=== PATIENT | female | born 2000 | race American Indian/Alaskan Native ===

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

== ENCOUNTER 2022-03-09 05:33 | Emergency (ER) | payer MEDICAID ==
[2022-03-09 05:55] VITALS: BP 128/99; PULSE 86
[2022-03-09] MEDS ORDERED: Ondansetron 4 MG Tab.DIS PO ONE (05:56)
[2022-03-09] MEDS ORDERED: Sodium Chloride 0.9% 1,000 ML IV ONE (06:53)
[2022-03-09 08:01] LABS: AMPHETAMINES,URINE NEGATIVE (NEGATIVE); BARBITURATES,URINE NEGATIVE (NEGATIVE); BENZODIAZEPINE,URINE NEGATIVE (NEGATIVE); MDMA (ECSTASY), URINE NEGATIVE (NEGATIVE); METHADONE,URINE NEGATIVE (NEGATIVE); METHAMPHETAMINES,URINE NEGATIVE (NEGATIVE); OPIATES,URINE NEGATIVE (NEGATIVE); OXYCODONE,URINE NEGATIVE (NEGATIVE); PHENCYCLIDINE,URINE NEGATIVE (NEGATIVE); TCA,URINE NEGATIVE (NEGATIVE)
[2022-03-09 08:09] LABS: ANION GAP 19.1 mEq/L (7-13); CHLORIDE,CL 104 mmol/L (98-107); SODIUM,NA 137 mmol/L (136-145)
[2022-03-09 08:19] LABS: ESTIMATED GFR 135 mL/min (>=60)
[2022-03-09] MEDS ORDERED: Ondansetron 4 MG/2 ML SDV IVPUSH ONE (08:26)
== END 2022-03-09 08:45 | disposition home or self-care (01) ==
LOC: DL.ED 05:33
DX: O21.9 Vomiting of pregnancy, unspecified (principal); O99.322 Drug use complicating pregnancy, second trimester; F12.10 Cannabis abuse, uncomplicated; O99.282 Endocrine, nutritional and metabolic diseases complicating pregnancy, second trimester; E87.6 Hypokalemia; Z20.822 Contact with and (suspected) exposure to COVID-19; Z3A.15 15 weeks gestation of pregnancy
CPT/HCPCS: 36415; 80053; 80305; 81003; 82150; 83605; 83690; 84145; 85025; 86140; 87635; 96361; 96374; 99284; A9270; J2405; J7030; U0002

== ENCOUNTER 2022-08-13 06:15 | Inpatient (IN) | payer MEDICAID ==
[2022-08-13] MEDS ORDERED: Carboprost Tromethamine 250 MCG/1 ML Amp IM PRN (07:02)
[2022-08-13] MEDS ORDERED: Lidocaine 1% 30 ML SDV INJECT PRN (07:02)
[2022-08-13] MEDS ORDERED: fentaNYL 100 MCG/2 ML SDV IVPUSH PRN (07:02)
[2022-08-13] MEDS ORDERED: Sodium Chloride 0.9% 10 ML Syringe FLUSH PRN (07:02)
[2022-08-13] MEDS ORDERED: Tranexamic Acid 1,000 MG in Sodium Chloride 0.9% 100 ML IV PRN (07:02)
[2022-08-13] MEDS ORDERED: Lactated Ringers 1,000 ML IV ONE (07:02)
[2022-08-13] MEDS ORDERED: Ondansetron 4 MG/2 ML SDV IVPUSH PRN (07:02)
[2022-08-13] MEDS ORDERED: Methylergonovine 0.2 MG/1 ML Amp IM PRN (07:02)
[2022-08-13] MEDS ORDERED: Acetaminophen 325 MG Tab PO PRN (07:02)
[2022-08-13] MEDS ORDERED: Misoprostol 400 MCG (4 X 100 MCG TAB) RECTAL PRN (07:02)
[2022-08-13] MEDS ORDERED: Ondansetron 4 MG/2 ML SDV ONE (07:10)
[2022-08-13] MEDS ORDERED: Oxytocin/Normal Saline 30 UNIT/500 ML BAG IV SCH (07:15)
[2022-08-13] MEDS ORDERED: fentaNYL 100 MCG/2 ML SDV ONE ×2 (07:42→14:45)
[2022-08-13] MEDS ORDERED: Phenylephrine HCl In 0.9% NaCl 1 MG/10 ML Syringe ONE (07:43)
[2022-08-13] MEDS ORDERED: Bupivacaine 0.25% 10 ML SDV ONE ×2 (07:43→14:45)
[2022-08-13] MEDS ORDERED: Bupivacaine 0.25% 10 ML SDV INJECT ONE ×2 (07:43→15:59)
[2022-08-13] MEDS ORDERED: fentaNYL 100 MCG/2 ML SDV ITHECAL ONE (07:43)
[2022-08-13] MEDS ORDERED: ePHEDrine 50 MG/ML SDV ONE (07:43)
[2022-08-13] MEDS: Lactated Ringers 1,000 ML IV SCH ×2 (07:57→14:46)
[2022-08-13] MEDS: Ropivacaine 200 MG in Premix Bag 1 BAG EPIDUR SCH ×2 (08:05→14:53)
[2022-08-13] MEDS ORDERED: ePHEDrine 50 MG/ML SDV IVPUSH PRN (08:38)
[2022-08-13] MEDS ORDERED: Phenylephrine HCl In 0.9% NaCl 1 MG/10 ML Syringe IVPUSH PRN (08:38)
[2022-08-13] MEDS ORDERED: fentaNYL 100 MCG/2 ML SDV IV ONE (15:59)
[2022-08-13] MEDS ORDERED: Simethicone 80 MG Tab.Chew PO PRN (18:45)
[2022-08-13] MEDS ORDERED: Benzocaine/Menthol 20%-0.5% Spray 78 GM Cannister TOP PRN (18:45)
[2022-08-13] MEDS ORDERED: Oxytocin 10 Units/1 ML SDV IM PRN (18:45)
[2022-08-13] MEDS: Ibuprofen 800 MG Tab PO PRN (23:27)
[2022-08-13] MEDS: Docusate Sodium 100 MG Cap PO PRN (23:28)
[2022-08-14] MEDS: Prenatal Multivitamin with Calcium/Folic Acid/Iron Tab PO SCH (08:36)
[2022-08-14] MEDS: Docusate Sodium 100 MG Cap PO PRN (08:37)
[2022-08-14] MEDS: Ibuprofen 800 MG Tab PO PRN ×2 (08:40→18:00)
[2022-08-14] MEDS: Acetaminophen 325 MG Tab PO PRN ×2 (10:28→16:19)
[2022-08-14] MEDS ORDERED: Witch Hazel Medicated Pads 100/Jar TOP PRN (15:50)
[2022-08-15] MEDS: Acetaminophen 325 MG Tab PO PRN ×2 (04:35→12:31)
[2022-08-15] MEDS: Ibuprofen 800 MG Tab PO PRN (08:29)
[2022-08-15] MEDS: Prenatal Multivitamin with Calcium/Folic Acid/Iron Tab PO SCH (08:29)
[2022-08-15] MEDS: Docusate Sodium 100 MG Cap PO PRN (08:29)
[2022-08-15 10:11] VITALS: BP 118/64; PULSE 66
== END 2022-08-15 16:00 | disposition home or self-care (01) | DRG 807 ==
LOC: DL.OB 06:15 → UNDOADMOB 06:34 → DL.OB 06:34 → OBSVTOIN 16:37 → DL.OB 16:37
PROVIDERS: ADMIT Family Medicine; ATTEND Family Medicine
PROC: 10E0XZZ Delivery of Products of Conception, External Approach (ICD-10-PCS; principal; 2022-08-13)
DX: O99.02 Anemia complicating childbirth (principal); Z37.0 Single live birth; D64.9 Anemia, unspecified; O99.334 Smoking (tobacco) complicating childbirth; F17.210 Nicotine dependence, cigarettes, uncomplicated; Z88.0 Allergy status to penicillin; Z90.49 Acquired absence of other specified parts of digestive tract; Z3A.37 37 weeks gestation of pregnancy
CPT/HCPCS: 01967; 36415; 51702; 59409; 85027; A9270-GY; J2405; J2590; J2795; J3010; J3490; J7120

== ENCOUNTER 2023-11-03 08:42 | Inpatient (IN) | payer MEDICAID ==
[2023-11-03] MEDS ORDERED: Naloxone 2 MG/2 ML Syringe IVPUSH PRN (09:12)
[2023-11-03] MEDS: Lactated Ringers 1,000 ML IV ONE (09:13)
[2023-11-03] MEDS: fentaNYL 100 MCG/2 ML SDV IVPUSH ONE (10:00)
[2023-11-03 10:29] LABS: APPEARANCE,URINE SLIGHTLY CLOUDY (CLEAR); BILIRUBIN,URINE NEGATIVE (NEGATIVE); COLOR,URINE YELLOW (YELLOW); GLUCOSE,URINE NEGATIVE (NEGATIVE); KETONES,URINE NEGATIVE (NEGATIVE); LEUKOCYTE ESTERASE,URINE TRACE (NEGATIVE); NITRITE,URINE NEGATIVE (NEGATIVE); OCCULT BLOOD,URINE MODERATE (NEGATIVE); PH,URINE 7.5 (5.0-9.0); PROTEIN,URINE 100 (NEGATIVE); UROBILINOGEN,URINE 0.2 mg/dL (0.2-1.0)
[2023-11-03] MEDS: metroNIDAZOLE 250 MG Tab PO ONE (10:37)
[2023-11-03] MEDS: Fluconazole 100 MG Tab PO ONE (10:37)
[2023-11-03] MEDS: Ondansetron 4 MG/2 ML SDV IVPUSH ONE (10:38)
[2023-11-03] MEDS: Acetaminophen 500 MG Tab PO ONE (10:38)
[2023-11-03 10:51] LABS: BACTERIA,URINE MODERATE /HPF (0-FEW/HPF); HYALINE CASTS,URINE FEW
[2023-11-03 10:52] LABS: EPITHELIAL CELLS,URINE MANY /HPF (NOT SEEN); MUCUS,URINE MODERATE /LPF (NOT SEEN)
[2023-11-03] MEDS: Lactated Ringers 1,000 ML IV SCH (11:10)
[2023-11-03] MEDS ORDERED: fentaNYL 100 MCG/2 ML SDV ONE (11:24)
[2023-11-03] MEDS ORDERED: Bupivacaine 0.25% 10 ML SDV ONE (11:24)
[2023-11-03] MEDS: Clindamycin in 0.9 % Sod Chlor 900 MG in Premix Bag 1 BAG IV ONE (11:45)
[2023-11-03] MEDS ORDERED: Phenylephrine HCl In 0.9% NaCl 1 MG/10 ML Syringe IVPUSH PRN (11:56)
[2023-11-03] MEDS ORDERED: ePHEDrine 50 MG/ML SDV IVPUSH PRN (11:56)
[2023-11-03] MEDS ORDERED: Methylergonovine 0.2 MG/1 ML Amp IM PRN (11:59)
[2023-11-03] MEDS ORDERED: Acetaminophen 325 MG Tab PO PRN (11:59)
[2023-11-03] MEDS ORDERED: Carboprost Tromethamine 250 MCG/1 ML Amp IM PRN (11:59)
[2023-11-03] MEDS ORDERED: Tranexamic Acid 1,000 MG in Sodium Chloride 0.9% 100 ML IV PRN (11:59)
[2023-11-03] MEDS ORDERED: Ondansetron 4 MG/2 ML SDV IVPUSH PRN (11:59)
[2023-11-03] MEDS ORDERED: Sodium Chloride 0.9% 10 ML Syringe FLUSH PRN (11:59)
[2023-11-03] MEDS ORDERED: Misoprostol 400 MCG (4 X 100 MCG TAB) RECTAL PRN (11:59)
[2023-11-03] MEDS ORDERED: Ropivacaine 200 MG in Premix Bag 1 BAG EPIDUR SCH (12:00)
[2023-11-03 12:08] LABS: HEMATOCRIT 31.6 % (37.0-47.0); HEMOGLOBIN 10.2 g/dL (12.0-16.0); MEAN CORPUSCULAR HEMOGLOBIN 28.9 pg (27.0-34.0); MEAN CORPUSCULAR HGB CONC 32.3 g/dL (33.0-35.0); MEAN CORPUSCULAR VOLUME 89.5 fL (80-100); RED BLOOD CELL COUNT 3.53 10^6/uL (4.2-5.4); WHITE BLOOD CELL COUNT,WBC 13.5 10^3/uL (5.0-10.0)
[2023-11-03] MEDS: Oxytocin/Normal Saline 30 UNIT/500 ML BAG IV SCH (12:10)
[2023-11-03] MEDS ORDERED: Methylergonovine 0.2 MG Tab PO PRN (12:25)
[2023-11-03] MEDS ORDERED: Oxytocin 10 Units/1 ML SDV IM PRN (12:25)
[2023-11-03] MEDS ORDERED: Simethicone 80 MG Tab.Chew PO PRN (12:25)
[2023-11-03] MEDS: Ibuprofen 800 MG Tab PO SCH (13:17)
[2023-11-03] MEDS: Benzocaine/Menthol 20%-0.5% Spray 78 GM Cannister TOP PRN (14:10)
[2023-11-03] MEDS: Witch Hazel Medicated Pads 100/Jar TOP PRN (14:11)
[2023-11-03] MEDS: Clindamycin in 0.9 % Sod Chlor 100 ML ONE (18:08)
[2023-11-03] MEDS: Docusate Sodium 100 MG Cap PO PRN (20:04)
[2023-11-03] MEDS: Acetaminophen 325 MG Tab PO PRN (20:04)
[2023-11-03 21:18] LABS: APPEARANCE,URINE CLOUDY (CLEAR); BILIRUBIN,URINE NEGATIVE (NEGATIVE); COLOR,URINE YELLOW (YELLOW); GLUCOSE,URINE NEGATIVE (NEGATIVE); KETONES,URINE NEGATIVE (NEGATIVE); LEUKOCYTE ESTERASE,URINE TRACE (NEGATIVE); NITRITE,URINE NEGATIVE (NEGATIVE); OCCULT BLOOD,URINE MODERATE (NEGATIVE); PH,URINE 7.5 (5.0-9.0); PROTEIN,URINE 100 (NEGATIVE); UROBILINOGEN,URINE 0.2 mg/dL (0.2-1.0)
[2023-11-03] MEDS: Labetalol 100 MG Tab PO ONE (21:32)
[2023-11-03 21:33] LABS: CREATININE,URINE RAND 116.05 mg/dL (No establ ref range); PROTEIN CREATININE RATIO,URINE 769.5 mg/g (<150.0); PROTEIN,URINE RANDOM 89.3 mg/dL (0.0-11.9)
[2023-11-03 21:51] LABS: HEMOGLOBIN 8.4 g/dL (12.0-16.0); MEAN CORPUSCULAR HEMOGLOBIN 29.3 pg (27.0-34.0); MEAN CORPUSCULAR HGB CONC 32.3 g/dL (33.0-35.0); MEAN CORPUSCULAR VOLUME 90.6 fL (80-100); RED BLOOD CELL COUNT 2.87 10^6/uL (4.2-5.4)
[2023-11-03 22:06] LABS: ALANINE AMINOTRANSFERASE,ALT 17 U/L (14-59); ASPARTATE AMNIOTRANSFERASE,AST 26 U/L (15-37); BLOOD UREA NITROGEN,BUN 10 mg/dL (7-18); CREATININE 0.71 mg/dL (0.55-1.02); LACTATE DEHYDROGENASE,LDH 544 U/L (81-234); URIC ACID 5.8 mg/dL (2.6-6.0)
[2023-11-03 22:07] LABS: ESTIMATED GFR 124 mL/min (>=60)
[2023-11-03] MEDS: Labetalol 20 MG/4 ML Syringe IVPUSH ONE (23:56)
[2023-11-04] MEDS: Labetalol 100 MG Tab PO ONE (02:22)
[2023-11-04 06:28] LABS: HEMATOCRIT 24.4 % (37.0-47.0); HEMOGLOBIN 7.7 g/dL (12.0-16.0); MEAN CORPUSCULAR HEMOGLOBIN 28.6 pg (27.0-34.0); MEAN CORPUSCULAR HGB CONC 31.6 g/dL (33.0-35.0); MEAN CORPUSCULAR VOLUME 90.7 fL (80-100); RED BLOOD CELL COUNT 2.69 10^6/uL (4.2-5.4); WHITE BLOOD CELL COUNT,WBC 11.4 10^3/uL (5.0-10.0)
[2023-11-04] MEDS: Prenatal Multivitamin with Calcium/Folic Acid/Iron Tab PO SCH (08:03)
[2023-11-04] MEDS ORDERED: Succinylcholine 200 MG/10 ML MDV ONE (11:27)
[2023-11-04] MEDS: Labetalol 100 MG Tab PO SCH (13:22)
[2023-11-04] MEDS: Ferrous Sulfate 325 MG Tab PO SCH (17:58)
[2023-11-04] MEDS: Lidocaine 1% 30 ML SDV INJECT ONE (20:06)
[2023-11-04] MEDS: Penicillin G Potassium 5,000,000 Unit Vial ONE (20:06)
[2023-11-05 13:51] VITALS: BP 139/85; PULSE 78
[2023-11-05] MEDS ORDERED: Ropivacaine 100 ML EPIDUR ONE (14:09)
[2023-11-05] MEDS ORDERED: fentaNYL 100 MCG/2 ML SDV EPIDUR ONE (14:09)
[2023-11-05] MEDS ORDERED: Bupivacaine 0.25% 10 ML SDV EPIDUR ONE (14:09)
== END 2023-11-05 14:10 | disposition home or self-care (01) | DRG 807 ==
LOC: DL.OBCHECK 08:42 → DL.OB 11:11 → OBSVTOIN 12:06
PROVIDERS: ADMIT Family Medicine; ATTEND Family Medicine
PROC: 10E0XZZ Delivery of Products of Conception, External Approach (ICD-10-PCS; principal; 2023-11-03)
PROC: 3E0R3BZ Introduction of Anesthetic Agent into Spinal Canal, Percutaneous Approach (ICD-10-PCS; 2023-11-03)
PROC: 00HU33Z Insertion of Infusion Device into Spinal Canal, Percutaneous Approach (ICD-10-PCS; 2023-11-03)
DX: O60.14X0 Preterm labor third trimester with preterm delivery third trimester, not applicable or unspecified (principal); Z37.0 Single live birth; O99.02 Anemia complicating childbirth; O99.013 Anemia complicating pregnancy, third trimester; Z3A.36 36 weeks gestation of pregnancy
CPT/HCPCS: 01967; 36415; 59025; 59409; 81001; 81003; 82565; 82570; 83615; 84156; 84450; 84460; 84520; 84550; 85027; 87081; 87086; 87210; A9270-GY; J0330; J0665; J1920; J2405; J2590; J2795; J3010; J3490; J7120

== ENCOUNTER 2024-06-29 05:24 | Emergency (ER) | payer MEDICAID ==
[2024-06-29] MEDS: Iopamidol 612 MG/ML 100 ML Bottle IVPUSH ONE (05:46)
[2024-06-29] MEDS: Sodium Chloride 0.9% 1,000 ML IV ONE (05:50)
[2024-06-29] MEDS: Famotidine 20 MG/2 ML SDV IVPUSH ONE (05:52)
[2024-06-29] MEDS: Ondansetron 4 MG/2 ML SDV IVPUSH ONE (05:53)
[2024-06-29 06:09] LABS: BASOPHILS PERCENT AUTO 0.3 % (0.0-1.0); EOSINOPHILS PERCENT AUTO 0.1 % (1.0-3.0); HEMATOCRIT 38.2 % (37.0-47.0); HEMOGLOBIN 12.5 g/dL (12.0-16.0); LYMPHOCYTES PERCENT AUTO 32.7 % (20.5-50.1); MEAN CORPUSCULAR HEMOGLOBIN 29.4 pg (27.0-34.0); MEAN CORPUSCULAR HGB CONC 32.7 g/dL (33.0-35.0); MEAN CORPUSCULAR VOLUME 89.9 fL (80-100); MONOCYTES PERCENT AUTO 3.5 % (2-8); NEUTROPHILS PERCENT AUTO 63.4 % (42.2-75.2); PLATELET COUNT,PLT 392 10^3/uL (150-450); RED BLOOD CELL COUNT 4.25 10^6/uL (4.2-5.4); WHITE BLOOD CELL COUNT,WBC 6.9 10^3/uL (5.0-10.0)
[2024-06-29 06:29] LABS: A/G RATIO 1.1; ALANINE AMINOTRANSFERASE,ALT 33 U/L (14-59); ALBUMIN 4.1 g/dL (3.4-5.0); ALKALINE PHOSPHATASE 72 U/L (46-116); ANION GAP 20.9 mEq/L (7-13); ASPARTATE AMNIOTRANSFERASE,AST 30 U/L (15-37); BILIRUBIN TOTAL 0.5 mg/dL (0.2-1.0); BLOOD UREA NITROGEN,BUN 7 mg/dL (7-18); BUN/CREATININE RATIO 6.9 (No establ ref range); CALCIUM 8.8 mg/dL (8.5-10.1); CARBON DIOXIDE,CO2 23 mmol/L (21-32); CHLORIDE,CL 105 mmol/L (98-107); CREATININE 1.02 mg/dL (0.55-1.02); EST CRCL DRUG DOSING (CG) 78.51 mL/min; ETHANOL BLOOD MEDICAL 152 mg/dL (0); GLUCOSE RANDOM 135 mg/dL (70-99); HCG QUALITATIVE,SERUM NEGATIVE (NEGATIVE); LIPASE 23 U/L (16-77); MAGNESIUM 1.5 mg/dL (1.8-2.4); POTASSIUM,K 3.9 mmol/L (3.5-5.1); PROTEIN TOTAL,TP 7.9 g/dL (6.4-8.2); SODIUM,NA 145 mmol/L (136-145)
[2024-06-29 06:30] LABS: ESTIMATED GFR 80 mL/min (>=60)
[2024-06-29 06:30] LABS: APPEARANCE,URINE SLIGHTLY CLOUDY (CLEAR); BILIRUBIN,URINE NEGATIVE (NEGATIVE); COLOR,URINE YELLOW (YELLOW); GLUCOSE,URINE NEGATIVE (NEGATIVE); KETONES,URINE NEGATIVE (NEGATIVE); LEUKOCYTE ESTERASE,URINE NEGATIVE (NEGATIVE); NITRITE,URINE NEGATIVE (NEGATIVE); OCCULT BLOOD,URINE NEGATIVE (NEGATIVE); PROTEIN,URINE NEGATIVE (NEGATIVE); UROBILINOGEN,URINE 0.2 mg/dL (0.2-1.0)
[2024-06-29 06:34] LABS: AMPHETAMINES,URINE NEGATIVE (NEGATIVE); BARBITURATES,URINE NEGATIVE (NEGATIVE); BENZODIAZEPINE,URINE NEGATIVE (NEGATIVE); MDMA (ECSTASY), URINE NEGATIVE (NEGATIVE); METHADONE,URINE NEGATIVE (NEGATIVE); METHAMPHETAMINES,URINE NEGATIVE (NEGATIVE); OPIATES,URINE NEGATIVE (NEGATIVE); OXYCODONE,URINE NEGATIVE (NEGATIVE); PHENCYCLIDINE,URINE NEGATIVE (NEGATIVE); TCA,URINE NEGATIVE (NEGATIVE)
[2024-06-29] MEDS: Magnesium Sulf/Wat 2 GM/50 mL 2 GM in Premix Bag 1 BAG IV ONE (06:49)
[2024-06-29] MEDS: Acetaminophen 325 MG Tab PO ONE (07:52)
[2024-06-29 08:38] VITALS: BP 109/76; PULSE 83
== END 2024-06-29 08:42 | disposition still patient (30) ==
LOC: DL.ED 05:24
DX: R11.2 Nausea with vomiting, unspecified (principal); R19.7 Diarrhea, unspecified; E86.0 Dehydration; E83.42 Hypomagnesemia; F10.10 Alcohol abuse, uncomplicated; F17.210 Nicotine dependence, cigarettes, uncomplicated; Z90.49 Acquired absence of other specified parts of digestive tract; Z88.0 Allergy status to penicillin
CPT/HCPCS: 36415; 74177; 80053; 80305; 80307; 81003; 82947; 83690; 83735; 84484; 84703; 85025; 93005; 96361; 96365; 96366; 96375; 99284; A9270; J2405; J3475; J7030; Q9967; 93010

== ENCOUNTER 2024-07-08 02:48 | Emergency (ER) | payer MEDICAID ==
[2024-07-08] MEDS ORDERED: Sodium Chloride 0.9% 10 ML Syringe FLUSH PRN (02:56)
[2024-07-08 03:06] VITALS: BP 127/81; PULSE 92
[2024-07-08] MEDS: Ondansetron 4 MG/2 ML SDV IVPUSH ONE (03:09)
[2024-07-08 03:16] LABS: AMPHETAMINES,URINE NEGATIVE (NEGATIVE); BARBITURATES,URINE NEGATIVE (NEGATIVE); BENZODIAZEPINE,URINE NEGATIVE (NEGATIVE); MDMA (ECSTASY), URINE NEGATIVE (NEGATIVE); METHADONE,URINE NEGATIVE (NEGATIVE); METHAMPHETAMINES,URINE NEGATIVE (NEGATIVE); OPIATES,URINE NEGATIVE (NEGATIVE); OXYCODONE,URINE NEGATIVE (NEGATIVE); PHENCYCLIDINE,URINE NEGATIVE (NEGATIVE); TCA,URINE NEGATIVE (NEGATIVE)
[2024-07-08 03:17] LABS: APPEARANCE,URINE SLIGHTLY CLOUDY (CLEAR); BILIRUBIN,URINE NEGATIVE (NEGATIVE); COLOR,URINE YELLOW (YELLOW); GLUCOSE,URINE NEGATIVE (NEGATIVE); KETONES,URINE TRACE (NEGATIVE); LEUKOCYTE ESTERASE,URINE NEGATIVE (NEGATIVE); NITRITE,URINE NEGATIVE (NEGATIVE); OCCULT BLOOD,URINE TRACE-INTACT (NEGATIVE); PROTEIN,URINE NEGATIVE (NEGATIVE); UROBILINOGEN,URINE 0.2 mg/dL (0.2-1.0)
[2024-07-08 03:18] LABS: BASOPHILS PERCENT AUTO 0.4 % (0.0-1.0); EOSINOPHILS PERCENT AUTO 0.1 % (1.0-3.0); HEMATOCRIT 37.5 % (37.0-47.0); HEMOGLOBIN 12.6 g/dL (12.0-16.0); LYMPHOCYTES PERCENT AUTO 20.6 % (20.5-50.1); MEAN CORPUSCULAR HEMOGLOBIN 30.2 pg (27.0-34.0); MEAN CORPUSCULAR HGB CONC 33.6 g/dL (33.0-35.0); MEAN CORPUSCULAR VOLUME 89.9 fL (80-100); NEUTROPHILS PERCENT AUTO 73.9 % (42.2-75.2); PLATELET COUNT,PLT 394 10^3/uL (150-450); RED BLOOD CELL COUNT 4.17 10^6/uL (4.2-5.4); WHITE BLOOD CELL COUNT,WBC 6.8 10^3/uL (5.0-10.0)
[2024-07-08 03:34] LABS: BACTERIA,URINE FEW /HPF (0-FEW/HPF); EPITHELIAL CELLS,URINE MODERATE /HPF (NOT SEEN); MUCUS,URINE MANY /LPF (NOT SEEN); RBC,URINE 0-5 /HPF (0-5)
[2024-07-08 03:35] LABS: A/G RATIO 1.1; ALANINE AMINOTRANSFERASE,ALT 21 U/L (14-59); ALBUMIN 4.1 g/dL (3.4-5.0); ALKALINE PHOSPHATASE 61 U/L (46-116); ANION GAP 20.7 mEq/L (7-13); ASPARTATE AMNIOTRANSFERASE,AST 18 U/L (15-37); BILIRUBIN TOTAL 0.4 mg/dL (0.2-1.0); BLOOD UREA NITROGEN,BUN 7 mg/dL (7-18); CALCIUM 8.7 mg/dL (8.5-10.1); CARBON DIOXIDE,CO2 22 mmol/L (21-32); CHLORIDE,CL 107 mmol/L (98-107); CREATININE 0.87 mg/dL (0.55-1.02); ETHANOL BLOOD MEDICAL 214 mg/dL (0); GLUCOSE RANDOM 138 mg/dL (70-99); LIPASE 21 U/L (16-77); MAGNESIUM 1.6 mg/dL (1.8-2.4); POTASSIUM,K 3.7 mmol/L (3.5-5.1); PROTEIN TOTAL,TP 7.7 g/dL (6.4-8.2); SODIUM,NA 146 mmol/L (136-145)
[2024-07-08 03:36] LABS: ESTIMATED GFR 97 mL/min (>=60)
[2024-07-08] MEDS: Acetaminophen 500 MG Tab PO ONE (04:02)
[2024-07-08] MEDS: Take Home: Ondansetron 4 MG Tab.DIS, 5 Tab Pack PO ONE (04:02)
== END 2024-07-08 04:29 | disposition home or self-care (01) ==
LOC: DL.ED 02:48
DX: R11.14 Bilious vomiting (principal); R10.30 Lower abdominal pain, unspecified; F10.929 Alcohol use, unspecified with intoxication, unspecified; F17.210 Nicotine dependence, cigarettes, uncomplicated; Z88.0 Allergy status to penicillin; Z79.899 Other long term (current) drug therapy; Z90.49 Acquired absence of other specified parts of digestive tract
CPT/HCPCS: 36415; 80053; 80305; 80307; 81001; 81025; 83690; 83735; 85025; 96374; 99284; A9270; J2405; Q0162

== ENCOUNTER 2024-10-29 07:03 | Emergency (ER) | payer MEDICAID ==
[2024-10-29] MEDS: Ondansetron 4 MG Tab.DIS PO ONE (07:18)
[2024-10-29] MEDS: Ondansetron 4 MG Tab.DIS ONE (07:19)
[2024-10-29 07:40] LABS: BASOPHILS PERCENT AUTO 0.3 % (0.0-1.0); EOSINOPHILS PERCENT AUTO 0.0 % (1.0-3.0); LYMPHOCYTES PERCENT AUTO 14.8 % (20.5-50.1); MONOCYTES PERCENT AUTO 3.1 % (2-8); NEUTROPHILS PERCENT AUTO 81.8 % (42.2-75.2); PLATELET COUNT,PLT 398 10^3/uL (150-450); RED BLOOD CELL COUNT 3.85 10^6/uL (4.2-5.4); WHITE BLOOD CELL COUNT,WBC 9.3 10^3/uL (5.0-10.0)
[2024-10-29 07:45] LABS: APPEARANCE,URINE CLEAR (CLEAR); GLUCOSE,URINE NEGATIVE (NEGATIVE); OCCULT BLOOD,URINE LARGE (NEGATIVE)
[2024-10-29 07:47] LABS: AMPHETAMINES,URINE NEGATIVE (NEGATIVE); BARBITURATES,URINE NEGATIVE (NEGATIVE); MDMA (ECSTASY), URINE NEGATIVE (NEGATIVE); METHAMPHETAMINES,URINE NEGATIVE (NEGATIVE); OPIATES,URINE NEGATIVE (NEGATIVE); OXYCODONE,URINE NEGATIVE (NEGATIVE); PHENCYCLIDINE,URINE NEGATIVE (NEGATIVE); TCA,URINE NEGATIVE (NEGATIVE)
[2024-10-29 07:59] LABS: A/G RATIO 1.3; ALANINE AMINOTRANSFERASE,ALT 27.0 U/L (14-59); ASPARTATE AMNIOTRANSFERASE,AST 23.0 U/L (15-37); BILIRUBIN TOTAL 0.3 mg/dL (0.2-1.0); BLOOD UREA NITROGEN,BUN 7.0 mg/dL (7-18); CARBON DIOXIDE,CO2 19.0 mmol/L (21-32); CHLORIDE,CL 106.0 mmol/L (98-107); CREATININE 0.87 mg/dL (0.55-1.02); EST CRCL DRUG DOSING (CG) 83.9 mL/min; ESTIMATED GFR 97.0 mL/min (>=60); ETHANOL BLOOD MEDICAL 119.0 mg/dL (0); GLUCOSE RANDOM 120.0 mg/dL (70-99); POTASSIUM,K 3.4 mmol/L (3.5-5.1); PROTEIN TOTAL,TP 7.6 g/dL (6.4-8.2); SODIUM,NA 142.0 mmol/L (136-145)
[2024-10-29 08:38] LABS: EPITHELIAL CELLS,URINE FEW /HPF (NOT SEEN)
[2024-10-29] MEDS: Promethazine 25 MG/ML SDV IM ONE (08:39)
[2024-10-29] MEDS: Magnesium Sulfat/D5W 1GM/100ML 1 GM in Premix Bag 1 BAG IV ONE (08:40)
[2024-10-29] MEDS: Lactated Ringers 1,000 ML IV ONE (08:40)
[2024-10-29 11:19] VITALS: BP 106/61; PULSE 72
== END 2024-10-29 11:30 | disposition home or self-care (01) ==
LOC: DL.ED 07:03
DX: R11.10 Vomiting, unspecified (principal); F17.200 Nicotine dependence, unspecified, uncomplicated; Z88.0 Allergy status to penicillin; Z79.899 Other long term (current) drug therapy; Z90.49 Acquired absence of other specified parts of digestive tract
CPT/HCPCS: 36415; 80053; 80305; 80307; 81001; 81025; 83735; 85025; 96365; 96372; 96375; 99284; A9270; J2470; J2550; J3475; J7120; Q0169

== ENCOUNTER 2024-11-13 23:37 | Emergency (ER) | payer MEDICAID ==
[2024-11-14 00:14] LABS: BASOPHILS PERCENT AUTO 0.2 % (0.0-1.0); EOSINOPHILS PERCENT AUTO 0.0 % (1.0-3.0); LYMPHOCYTES PERCENT AUTO 18.3 % (20.5-50.1); MONOCYTES PERCENT AUTO 3.1 % (2-8); NEUTROPHILS PERCENT AUTO 78.4 % (42.2-75.2); PLATELET COUNT,PLT 460 10^3/uL (150-450); RED BLOOD CELL COUNT 4.25 10^6/uL (4.2-5.4); WHITE BLOOD CELL COUNT,WBC 10.6 10^3/uL (5.0-10.0)
[2024-11-14] MEDS: Ketorolac 30 MG/ML SDV IVPUSH ONE (00:14)
[2024-11-14 00:25] LABS: A/G RATIO 1.3; ALANINE AMINOTRANSFERASE,ALT 27 U/L (14-59); ASPARTATE AMNIOTRANSFERASE,AST 18 U/L (15-37); BILIRUBIN TOTAL 0.3 mg/dL (0.2-1.0); BLOOD UREA NITROGEN,BUN 9 mg/dL (7-18); CARBON DIOXIDE,CO2 21 mmol/L (21-32); CHLORIDE,CL 102 mmol/L (98-107); CREATININE 0.63 mg/dL (0.55-1.02); EST CRCL DRUG DOSING (CG) 126.04 mL/min; ETHANOL BLOOD MEDICAL 143 mg/dL (0); GLUCOSE RANDOM 126 mg/dL (70-99); POTASSIUM,K 3.7 mmol/L (3.5-5.1); PROTEIN TOTAL,TP 7.9 g/dL (6.4-8.2); SODIUM,NA 139 mmol/L (136-145)
[2024-11-14 00:26] LABS: ESTIMATED GFR 129 mL/min (>=60)
[2024-11-14 00:31] LABS: HCG QUALITATIVE,SERUM NEGATIVE (NEGATIVE); LACTIC ACID 4.8 mmol/L (0.4-2.0)
[2024-11-14 02:20] LABS: APPEARANCE,URINE CLOUDY (CLEAR); GLUCOSE,URINE NEGATIVE (NEGATIVE); OCCULT BLOOD,URINE NEGATIVE (NEGATIVE)
[2024-11-14 02:26] LABS: AMPHETAMINES,URINE NEGATIVE (NEGATIVE); BARBITURATES,URINE NEGATIVE (NEGATIVE); MDMA (ECSTASY), URINE NEGATIVE (NEGATIVE); METHAMPHETAMINES,URINE NEGATIVE (NEGATIVE); OPIATES,URINE NEGATIVE (NEGATIVE); OXYCODONE,URINE NEGATIVE (NEGATIVE); PHENCYCLIDINE,URINE NEGATIVE (NEGATIVE); TCA,URINE NEGATIVE (NEGATIVE)
[2024-11-14] MEDS: Take Home: Ondansetron 4 MG Tab.DIS, 5 Tab Pack PO ONE (02:27)
[2024-11-14 02:29] LABS: EPITHELIAL CELLS,URINE MODERATE /HPF (NOT SEEN)
[2024-11-14 02:45] VITALS: BP 127/75; PULSE 89
== END 2024-11-14 02:35 | disposition home or self-care (01) ==
LOC: DL.ED 23:37
DX: R11.10 Vomiting, unspecified (principal); F12.90 Cannabis use, unspecified, uncomplicated; F10.90 Alcohol use, unspecified, uncomplicated; Z88.0 Allergy status to penicillin; Z79.899 Other long term (current) drug therapy; Y90.9 Presence of alcohol in blood, level not specified
CPT/HCPCS: 36415; 80053; 80305-QW; 80307; 81001; 83605; 83690; 83735; 84703; 85025; 96361; 96374; 99284; 99284-25; J1630; J1885; J7030; Q0162

== ENCOUNTER 2025-01-12 07:21 | Emergency (ER) | payer MEDICAID ==
[2025-01-12] MEDS ORDERED: Sodium Chloride 0.9% 10 ML Syringe FLUSH PRN (07:24)
[2025-01-12] MEDS: Ondansetron 4 MG/2 ML SDV IVPUSH ONE (07:35)
[2025-01-12] MEDS: fentaNYL 100 MCG/2 ML SDV IVPUSH ONE (07:38)
[2025-01-12 07:44] LABS: BASOPHILS PERCENT AUTO 0.2 % (0.0-1.0); EOSINOPHILS PERCENT AUTO 0.0 % (1.0-3.0); LYMPHOCYTES PERCENT AUTO 12.4 % (20.5-50.1); MONOCYTES PERCENT AUTO 3.2 % (2-8); NEUTROPHILS PERCENT AUTO 84.2 % (42.2-75.2); PLATELET COUNT,PLT 398 10^3/uL (150-450); RED BLOOD CELL COUNT 3.98 10^6/uL (4.2-5.4); WHITE BLOOD CELL COUNT,WBC 10.9 10^3/uL (5.0-10.0)
[2025-01-12 08:04] LABS: A/G RATIO 1.2; ALANINE AMINOTRANSFERASE,ALT 29 U/L (14-59); ASPARTATE AMNIOTRANSFERASE,AST 20 U/L (15-37); BILIRUBIN TOTAL 0.3 mg/dL (0.2-1.0); BLOOD UREA NITROGEN,BUN 9 mg/dL (7-18); CARBON DIOXIDE,CO2 20 mmol/L (21-32); CHLORIDE,CL 101 mmol/L (98-107); CREATININE 0.70 mg/dL (0.55-1.02); ETHANOL BLOOD MEDICAL 91 mg/dL (0); GLUCOSE RANDOM 104 mg/dL (70-99); POTASSIUM,K 3.4 mmol/L (3.5-5.1); PROTEIN TOTAL,TP 8.1 g/dL (6.4-8.2); SODIUM,NA 139 mmol/L (136-145)
[2025-01-12 08:07] LABS: ESTIMATED GFR 125 mL/min (>=60); HCG QUALITATIVE,SERUM NEGATIVE (NEGATIVE)
[2025-01-12 08:07] LABS: AMPHETAMINES,URINE NEGATIVE (NEGATIVE); BARBITURATES,URINE NEGATIVE (NEGATIVE); MDMA (ECSTASY), URINE NEGATIVE (NEGATIVE); METHAMPHETAMINES,URINE NEGATIVE (NEGATIVE); OPIATES,URINE NEGATIVE (NEGATIVE); OXYCODONE,URINE NEGATIVE (NEGATIVE); PHENCYCLIDINE,URINE NEGATIVE (NEGATIVE); TCA,URINE NEGATIVE (NEGATIVE)
[2025-01-12] MEDS: Magnesium Sulfate 2 GM/50 mL 2 GM in Premix Bag 1 BAG IV ONE (08:30)
[2025-01-12 09:13] VITALS: BP 109/53; PULSE 79
== END 2025-01-12 09:41 | disposition home or self-care (01) ==
LOC: DL.ED 07:21
DX: F12.90 Cannabis use, unspecified, uncomplicated (principal); E83.42 Hypomagnesemia; R11.2 Nausea with vomiting, unspecified; R10.30 Lower abdominal pain, unspecified; Z88.0 Allergy status to penicillin; Z79.899 Other long term (current) drug therapy
CPT/HCPCS: 36415; 80053; 80305; 80307; 83690; 83735; 84703; 85025; 93005; 93010; 96365; 96375; 99284; J2405; J3010; J3475